=== PATIENT | female | born 2000 | race Two or more races ===

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

== ENCOUNTER 2021-03-07 13:17 | Emergency (ER) | payer OTHER ==
--- NOTE | 2021-03-07 15:21 | EDM.PDOC ---
ED HPI GENERAL MEDICAL PROBLEM - General Chief Complaint: ENT Problem Stated Complaint: SORE THROAT EAR PAIN Time Seen by Provider: 03/07/21 15:15 Source of Information: Reports: Patient History Limitations: Reports: No Limitations - History of Present Illness INITIAL COMMENTS - FREE TEXT/NARRATIVE: 20-year-old female no relevant past medical history presents for multiple compl aints. Patient is noted for the last several days fullness sensation to bilateral ears and difficulty hearing out of bilateral ears right greater than left. Patient also notes a dry, scratchy, painful throat which is worse with swallowing. She notes that her family member has sinusitis, her boyfriend has mononucleosis, and her other family member has strep throat. She denies any fevers. She does have a dry cough. She denies any shortness of breath. throat Pain Score (Numeric/FACES): 5 - Related Data Allergies Allergy/AdvReac Type Severity Reaction Status Date / Time amoxicillin Allergy Anaphylactic Verified 03/07/21 14:28 Shock fentanyl Allergy Rash Verified 03/07/21 14:28 morphine Allergy Rash Verified 03/07/21 14:28 Home Meds: Home Meds Pseudoephedrine HCl [Sudafed 12-Hour] 120 mg PO BID PRN #28 tablet.er 03/07/21 [Rx] Past Medical History - Past Health History Medical/Surgical History: Denies Medical/Surgical History HEENT History: Reports: None Cardiovascular History: Reports: None Respiratory History: Reports: None Gastrointestinal History: Reports: None Genitourinary History: Reports: UTI, Recurrent IMMUNOCHEMIST History: Reports: Ectopic Other IMMUNOCHEMIST History: states she had an IUD which was taken out last year and can no longer get due to complications Musculoskeletal History: Reports: None Neurological History: Reports: Migraines Psychiatric History: Reports: Anxiety Endocrine/Metabolic History: Reports: None Hematologic History: Reports: None Immunologic History: Reports: None Oncologic (Cancer) History: Reports: None Dermatologic History: Reports: None - Infectious Disease History Infectious Disease History: Reports: Chicken Pox - Past Surgical History Head Surgeries/Procedures: Reports: None HEENT Surgical History: Reports: Tonsillectomy Cardiovascular Surgical History: Reports: None Respiratory Surgical History: Reports: None GI Surgical History: Reports: None Female Surgical History: Reports: None Other Female Surgeries/Procedures: Tubal , miscarriage 2 Endocrine Surgical History: Reports: None Neurological Surgical History: Reports: None Musculoskeletal Surgical History: Reports: None Oncologic Surgical History: Reports: None Dermatological Surgical History: Reports: None Social & Family History - Family History Family Medical History: No Pertinent Family History - Caffeine Use Caffeine Use: Reports: None - Recreational Drug Use Recreational Drug Use: No ED ROS GENERAL - Review of Systems Review Of Systems: Comprehensive ROS is negative, except as noted in HPI. ED EXAM, GENERAL - Physical Exam Exam: See Below Exam Limited By: No Limitations General Appearance: Alert, WD/WN, No Apparent Distress Ears: Normal External Exam, Normal Canal, Hearing Grossly Normal, Normal TMs Throat/Mouth: Normal Inspection, Normal Oropharynx, Normal Voice, No Airway Compromise Head: Atraumatic, Normocephalic Neck: Normal Inspection Respiratory/Chest: No Respiratory Distress, Lungs Clear, Normal Breath Sounds, No Accessory Muscle Use Cardiovascular: Normal Peripheral Pulses, Regular Rate, Rhythm Extremities: Normal Inspection Neurological: Alert Psychiatric: Normal Affect, Normal Mood Skin Exam: Warm, Dry, Intact, Normal Color Course - Vital Signs Last Recorded V/S: Last Vital Signs Temp 98.7 F 03/07/21 14:28 Pulse 66 03/07/21 14:28 Resp 17 03/07/21 14:28 BP 136/96 H 03/07/21 14:28 Pulse Ox 95 03/07/21 14:28 - Orders/Labs/Meds Labs: Laboratory Tests 03/07/21 03/07/21 Range/Units 15:19 16:33 Monoscreen NEGATIVE (NEG) Group A Strep (PCR) NOT DETECTED (NOT DETECT) - Re-Assessments/Exams Free Text/Narrative Re-Assessment/Exam: 03/07/21 15:21 Patient declines Covid testing and she was tested yesterday and it was negative. Will get a strep throat test. Will get mono test. Will follow up results and disposition accordingly. 03/07/21 17:03 Strep and mono testing are negative. Will discharge patient home with PMD follow-up. Will give sudafed for decongestant 03/07/21 17:03 Departure - Departure Time of Disposition: 17:03 Disposition: Home, Self-Care 01 Condition: Good Clinical Impression: Sinus congestion - Discharge Information Prescriptions: Pseudoephedrine HCl [Sudafed 12-Hour] 120 mg PO BID PRN #28 tablet.er PRN Reason: Congestion Instructions: Pseudoephedrine tablets Referrals: PCP,None [Primary Care Provider] - Forms: ED Department Discharge Additional Instructions: The following information is given to patients seen in the emergency department who are being discharged to home. This information is to outline your options for follow-up care. We provide all patients seen in our emergency department with a follow-up referral. The need for follow-up, as well as the timing and circumstances, are variable depending upon the specifics of your emergency department visit. If you don't have a primary care physician on staff, we will provide you with a referral. We always advise you to contact your personal physician following an emergency department visit to inform them of the circumstance of the visit and for follow-up with them and/or the need for any referrals to a consulting specialist. The emergency department will also refer you to a specialist when appropriate. This referral assures that you have the opportunity for follow-up care with a specialist. All of these measure are taken in an effort to provide you with optimal care, which includes your follow-up. Under all circumstances we always encourage you to contact your private physician who remains a resource for coordinating your care. When calling for follow-up care, please make the office aware that this follow-up is from your recent emergency room visit. If for any reason you are refused follow-up, please contact the [facility] Emergency Department at and asked to speak to the emergency department charge nurse. Please follow up with your primary care physician. If you do not have a primary care physician, see below: [facility] [address] [place] [id number] [facility] [address] [place] [address] [facility] [address] [place] [id number] Sepsis Event Note (ED) - Evaluation Sepsis Screening Result: No Definite Risk - Focused Exam Vital Signs: Vital Signs Temp Pulse Resp BP Pulse Ox 03/07/21 14:28 98.7 F 66 17 136/96 H 95
[2021-03-07 17:13] VITALS: BP 130/84; PULSE 83
== END 2021-03-07 17:11 | disposition home or self-care (01) ==
LOC: MW.ED 13:17
DX: R09.81 Nasal congestion (principal); Z88.0 Allergy status to penicillin; Z88.5 Allergy status to narcotic agent; Z88.8 Allergy status to other drugs, medicaments and biological substances
CPT/HCPCS: 36415; 86308; 87651-QW; 99283

== ENCOUNTER 2021-04-16 10:03 | Emergency (ER) | payer OTHER ==
[2021-04-16] MEDS ORDERED: Ondansetron 4 MG/2 ML SDV IVPUSH ONE (10:56)
[2021-04-16] MEDS ORDERED: Sodium Chloride 0.9% 2.5 ML Syringe FLUSH PRN (10:56)
[2021-04-16] MEDS: Sodium Chloride 0.9% 10 ML Syringe FLUSH PRN ×2 (12:05→12:06)
[2021-04-16 12:53] LABS: BLOOD UREA NITROGEN,BUN 11 mg/dL (7.0-18.0); CARBON DIOXIDE,CO2 24.4 mmol/L (21.0-32.0); CHLORIDE,CL 100 mmol/L (98-107); GLUCOSE RANDOM 87 mg/dL (74-106); LIPASE 77 U/L (73-393); POTASSIUM,K 4.5 mmol/L (3.5-5.1); SODIUM,NA 138 mmol/L (136-145)
[2021-04-16] MEDS ORDERED: Iopamidol 755 MG/ML 500 ML Multipack Bottle IVPUSH STA (13:41)
--- NOTE | 2021-04-16 14:20 | CT ---
INDICATION: Leukocytosis. Right lower quadrant pain. TECHNIQUE: CT abdomen and pelvis acquired with 100 cc Omnipaque 350 IV contrast. COMPARISON: None. FINDINGS: Lower chest: Unremarkable. Liver: Unremarkable. Normal in size and attenuation. No suspicious masses. Gallbladder and bile ducts: Unremarkable. No stones or inflammation. No biliary dilatation. Pancreas: Unremarkable. No mass or inflammation. Spleen: Unremarkable. Normal in size. No masses. Adrenal glands: Unremarkable. No nodules. Kidneys: Unremarkable. No suspicious masses, stones, or hydronephrosis. GI tract: Unremarkable. Normal in caliber. No sign of mass or inflammation. Normal appendix. Vasculature: Unremarkable. Mesenteric arteries are patent. Lymph nodes: No lymphadenopathy. Omentum/Peritoneum/Abdominal Wall: Unremarkable. No sign of mass or infiltration. No free air or significant free fluid. Pelvis: Unremarkable. No adnexal masses or cysts. Bones: Unremarkable for age. IMPRESSION: Unremarkable CT of the abdomen and pelvis. No findings to explain right lower quadrant abdomen pain or leukocytosis. Specifically the GI tract and appendix are normal. Please note that all CT scans at this facility use dose modulation, iterative reconstruction, and/or weight-based dosing when appropriate to reduce radiation dose to as low as reasonably achievable. Dictated by Chip Roe MD @ 04/16/2021 2:18:38 PM (Electronically Signed)
--- NOTE | 2021-04-16 15:38 | US ---
INDICATION: Right-sided pain. COMPARISON: CT of the abdomen and pelvis 04/16/2021. Pelvic ultrasound 08/20/2020. TECHNIQUE: 2D valencia scale and color Doppler images were acquired of the pelvis using a transvaginal approach. FINDINGS: Sonographic images demonstrate a normal size and smooth outer contour of the uterus. The uterus is anteverted in position. The uterus measures 7.1 cm in length by 2.8 cm in AP diameter by 4.1 cm in transverse dimension. The myometrium has a normal uniform echotexture. The endometrial lining appears normal and measures 6 mm in composite thickness. The right ovary measures 3.2 x 2.3 x 2.4 cm in size and the left ovary measures 2.1 x 1.9 x 1.5 cm. The ovaries demonstrate normal arterial and venous blood flow on color Doppler analysis. Resolution of the previously seen right adnexal mass. Trace free fluid in the cul-de-sac is likely physiologic. IMPRESSION: 1. Resolution of the previously seen right adnexal mass. 2. Exam otherwise unremarkable. Dictated by Sandy Bhakta MD @ 04/16/2021 3:36:19 PM (Electronically Signed)
--- NOTE | 2021-04-16 15:41 | EDM.PDOC ---
ED HPI GENERAL MEDICAL PROBLEM - General Chief Complaint: Gastrointestinal Problem Stated Complaint: ABDOMINAL PAIN Time Seen by Provider: 04/16/21 10:06 Source of Information: Reports: Patient History Limitations: Reports: No Limitations - History of Present Illness INITIAL COMMENTS - FREE TEXT/NARRATIVE: HISTORY AND PHYSICAL: History of present illness: Patient is a 20-year-old female who presents emergency room today with lower abdominal discomfort since yesterday. Patient states that she also has had intermittent vomiting since the onset of her symptoms. Patient states that she does have a history of prior ectopic on the right side. Patient states that she also has a history of ovarian cyst ruptures and is unsure if her pain is similar to that today or not. Patient states that she was just tested for STDs 1 week ago as her boyfriend had been unfaithful to her and states that all of her testing was negative including gonorrhea and chlamydia. Patient denies any pain with intercourse. Patient denies any other abdominal surgeries. Patient states that she does not believe to be as she just had a negative test 1 week ago when she had her STD testing. Patient denies fever, chills, chest pain, shortness of breath, or cough. Denies headache, neck stiff ness, change in vision, syncope, or near syncope. Denies diarrhea, constipation, or dysuria. Has not noted any blood in urine or stool. Patient has been eating and drinking appropriately. Review of systems: As per history of present illness and below otherwise all systems reviewed and negative. Past medical history: As per history of present illness and as reviewed below otherwise noncontributory. Surgical history: As per history of present illness and as reviewed below otherwise noncontributory. Social history: See social history for further information Family history: As per history of present illness and as reviewed below otherwise noncontributory. Physical exam: General: Patient is alert, oriented, and in no acute distress. Patient sitting comfortably on exam table. Vitals stable and reviewed by me. HEENT: Atraumatic, normocephalic, pupils equal and reactive bilaterally, negative for conjunctival pallor or scleral icterus, neck supple, nontender, trachea midline. No drooling or trismus noted. No meningeal signs. No hot potato voice noted. Lungs: Clear to auscultation, breath sounds equal bilaterally, chest nontender. Heart: S1S2, regular rate and rhythm without overt murmur Abdomen: She has some mild to moderate right and left lower abdominal tenderness without guarding. Negative rebound, negative Lorenzana. Otherwise, soft, nondistended. Negative for masses or hepatosplenomegaly. Negative for costovertebral tenderness. Pelvis: Stable nontender. Genitourinary: Reflesher at bedside Liz Mclean RN. External genitalia grossly unremarkable. Negative cervical motion tenderness. Cervix is nontender and mobile. Uterus non tender. Rectal: Deferred. Skin: Intact, warm, dry. No lesions or rashes noted. Extremities: Atraumatic, negative for cords or calf pain. Neurovascular unremarkable. Neuro: Awake, alert, oriented. Cranial nerves II through XII unremarkable. Cerebellum unremarkable. Motor and sensory unremarkable throughout. Exam nonfocal. Notes: Patient is a 20-year-old female, with a history of prior ectopic , presents emergency room today with concern of lower abdominal discomfort. Patient states that she also had a cyst on her ovary and thought her discomfort was similar to this. Upon arrival to the ED, patient is vitally stable and well-appearing on exam. Patient does have some mild to moderate lower abdominal tenderness both left and right equal without guarding and negative rebound. Patient does not have any cervical motion tenderness or adnexal mass noted on exam. Will obtain basic lab work, hCG and imaging. CBC does show a mild leukocytosis at 13.59, at this time is nonspecific but not patient has been vomiting. CMP unremarkable. hCG is negative. Lipase within normal limits. UA does show positive nitrite, 2-5 white blood cells with 3+ bacteria. Possible concerning for early urinary tract infection TVUS shows resolution of a previously seen right adnexal mass. Exam otherwise unremarkable. Abdominal pelvic CT w cont is unremarkable CT of the abdomen and pelvis. No findings to explain lower abdominal pain or leukocytosis. Specifically the GI tract and appendix are normal. Patient does not have any additional episodes of vomiting today in the ED and is able to drink water without vomiting. On reevaluation of patient, she has improvement of her symptoms today in the emergency room. Given that patient does have an early urinary tract infection, mild elevation of white blood cell count at 13.59, will start patient on Bactrim at this time. Strict return precautions thoroughly discussed with patient. Discussed importance for follow-up with a primary care provider and women's health care provider. Voices understanding and is agreeable to plan of care. Denies any further questions or concerns at this time. Diagnostics: CBC, CMP, hCG, lipase, urinalysis, transvaginal ultrasound, abdominal pelvic CT scan with contrast Therapeutics: Zofran Prescription: Bactrim DS Impression: Lower abdominal pain, unspecified Urinary tract infection Plan: 1. Take medication as prescribed. You can alternate ibuprofen and Tylenol as directed for pain and discomfort. 2. Follow-up with a primary care provider/women's health care provider as discussed. Return to the ED as needed and as discussed. Definitive disposition and diagnosis as appropriate pending reevaluation and review of above. Right Abdomen Pain Score (Numeric/FACES): 6 - Related Data Allergies Allergy/AdvReac Type Severity Reaction Status Date / Time amoxicillin Allergy Anaphylactic Verified 04/16/21 10:43 Shock fentanyl Allergy Rash Verified 04/16/21 10:43 Home Meds: Home Meds Sulfamethoxazole/Trimethoprim [Bactrim Ds Tablet] 1 each PO BID 5 Days #10 tablet 04/16/21 [Rx] Past Medical History - Past Health History Medical/Surgical History: Denies Medical/Surgical History HEENT History: Reports: None Cardiovascular History: Reports: None Respiratory History: Reports: None Gastrointestinal History: Reports: None Genitourinary History: Reports: UTI, Recurrent 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 Other SURFACE WATER MANAGER History: states she had an IUD which was taken out last year and can no longer get due to complications Musculoskeletal History: Reports: None Neurological History: Reports: Migraines Psychiatric History: Reports: Anxiety Endocrine/Metabolic History: Reports: None Hematologic History: Reports: None Immunologic History: Reports: None Oncologic (Cancer) History: Reports: None Dermatologic History: Reports: None - Infectious Disease History Infectious Disease History: Reports: Chicken Pox - Past Surgical History Head Surgeries/Procedures: Reports: None HEENT Surgical History: Reports: Tonsillectomy Cardiovascular Surgical History: Reports: None Respiratory Surgical History: Reports: None GI Surgical History: Reports: None Female Surgical History: Reports: None Other Female Surgeries/Procedures: Tubal , miscarriage 2 Endocrine Surgical History: Reports: None Neurological Surgical History: Reports: None Musculoskeletal Surgical History: Reports: None Oncologic Surgical History: Reports: None Dermatological Surgical History: Reports: None Social & Family History - Family History Family Medical History: No Pertinent Family History Cardiac: Reports: [place] Neurological: Reports: CVA - Tobacco Use Tobacco Use Status *Q: Never Tobacco User - Caffeine Use Caffeine Use: Reports: None - Recreational Drug Use Recreational Drug Use: No ED ROS GENERAL - Review of Systems Review Of Systems: Comprehensive ROS is negative, except as noted in HPI. ED EXAM, GENERAL - Physical Exam Exam: See Below (see dictation) Course - Vital Signs Last Recorded V/S: Last Vital Signs Temp 97.1 F 04/16/21 10:39 Pulse 85 04/16/21 14:41 Resp 18 04/16/21 14:41 BP 128/92 H 04/16/21 14:41 Pulse Ox 96 04/16/21 14:41 - Orders/Labs/Meds Orders: Active Orders 24 hr Category Date Time Status CULTURE URINE [MREF] Stat Lab 04/16/21 12:40 Received Sodium Chloride 0.9% [Saline Flush] Med 04/16/21 10:56 Active 10 ml FLUSH ASDIRECTED PRN Sodium Chloride 0.9% [Saline Flush] Med 04/16/21 10:56 Active 2.5 ml FLUSH ASDIRECTED PRN Saline Lock Insert [OM.PC] Stat Oth 04/16/21 10:56 Ordered Medication Orders Sodium Chloride (Sodium Chloride 0.9% 10 Ml Syringe) 10 ml FLUSH ASDIRECTED PRN PRN Reason: Keep Vein Open Last Admin: 04/16/21 12:06 Dose: 10 ml Documented by: Admin: 04/16/21 12:05 Dose: 10 ml Documented by: GENARO Sodium Chloride (Sodium Chloride 0.9% 2.5 Ml Syringe) 2.5 ml FLUSH ASDIRECTED PRN PRN Reason: Keep Vein Open Last Admin: 04/16/21 14:01 Dose: 2.5 ml Documented by: GENARO Labs: Laboratory Tests 04/16/21 04/16/21 04/16/21 Range/Units 12:00 12:00 12:00 WBC 13.54 H (4.0-11.0) K/uL RBC 4.78 (4.30-5.90) M/uL Hgb 14.2 (12.0-16.0) g/dL Hct 43.3 (36.0-46.0) % MCV 90.6 (80.0-98.0) fL MCH 29.7 (27.0-32.0) pg MCHC 32.8 (31.0-37.0) g/dL RDW Std Deviation 42.1 (28.0-62.0) fl RDW Coeff of Ginny 13 (11.0-15.0) % Plt Count 380 (150-400) K/uL MPV 10.00 (7.40-12.00) fL Neut % (Auto) 83.3 H (48.0-80.0) % Lymph % (Auto) 8.3 L (16.0-40.0) % Alexander % (Auto) 7.5 (0.0-15.0) % Eos % (Auto) 0.8 (0.0-7.0) % Baso % (Auto) 0.1 (0.0-1.5) % Neut # (Auto) 11.3 H (1.4-5.7) K/uL Lymph # (Auto) 1.1 (0.6-2.4) K/uL Alexander # (Auto) 1.0 H (0.0-0.8) K/uL Eos # (Auto) 0.1 (0.0-0.7) K/uL Baso # (Auto) 0.0 (0.0-0.1) K/uL Sodium 138 (136-145) mmol/L Potassium 4.5 (3.5-5.1) mmol/L Chloride 100 (98-107) mmol/L Carbon Dioxide 24.4 (21.0-32.0) mmol/L BUN 11 (7.0-18.0) mg/dL Creatinine 0.5 L (0.6-1.0) mg/dL Est Cr Clr Drug Dosing 143.13 mL/min Estimated GFR (MDRD) > 60.0 ml/min Glucose 87 (74-106) mg/dL Calcium 8.9 (8.5-10.1) mg/dL Total Bilirubin 0.4 (0.2-1.0) mg/dL AST 22 (15-37) IU/L ALT 22 (14-63) IU/L Alkaline Phosphatase 84 (46-116) U/L Total Protein 8.2 (6.4-8.2) g/dL Albumin 4.0 (3.4-5.0) g/dL Globulin 4.2 H (2.6-4.0) g/dL Albumin/Globulin Ratio 1.0 (0.9-1.6) Lipase 77 (73-393) U/L HCG, Qual NEGATIVE (NEG) Urine Color Urine Appearance Urine pH (5.0-8.0) Ur Specific Robbins (1.001-1.035) Urine Protein (NEGATIVE) mg/dL Urine Glucose (UA) (NEGATIVE) mg/dL Urine Ketones (NEGATIVE) mg/dL Urine Occult Blood (NEGATIVE) Urine Nitrite (NEGATIVE) Urine Bilirubin (NEGATIVE) Urine Urobilinogen (<2.0) EU/dL Ur Leukocyte Esterase (NEGATIVE) Urine RBC (0-2/HPF) Urine WBC (0-5/HPF) Ur Epithelial Cells (NONE-FEW) Urine Bacteria (NEGATIVE) 04/16/21 Range/Units 12:40 WBC (4.0-11.0) K/uL RBC (4.30-5.90) M/uL Hgb (12.0-16.0) g/dL Hct (36.0-46.0) % MCV (80.0-98.0) fL MCH (27.0-32.0) pg MCHC (31.0-37.0) g/dL RDW Std Deviation (28.0-62.0) fl RDW Coeff of Ginny (11.0-15.0) % Plt Count (150-400) K/uL MPV (7.40-12.00) fL Neut % (Auto) (48.0-80.0) % Lymph % (Auto) (16.0-40.0) % Alexander % (Auto) (0.0-15.0) % Eos % (Auto) (0.0-7.0) % Baso % (Auto) (0.0-1.5) % Neut # (Auto) (1.4-5.7) K/uL Lymph # (Auto) (0.6-2.4) K/uL Alexander # (Auto) (0.0-0.8) K/uL Eos # (Auto) (0.0-0.7) K/uL Baso # (Auto) (0.0-0.1) K/uL Sodium (136-145) mmol/L Potassium (3.5-5.1) mmol/L Chloride (98-107) mmol/L Carbon Dioxide (21.0-32.0) mmol/L BUN (7.0-18.0) mg/dL Creatinine (0.6-1.0) mg/dL Est Cr Clr Drug Dosing mL/min Estimated GFR (MDRD) ml/min Glucose (74-106) mg/dL Calcium (8.5-10.1) mg/dL Total Bilirubin (0.2-1.0) mg/dL AST (15-37) IU/L ALT (14-63) IU/L Alkaline Phosphatase (46-116) U/L Total Protein (6.4-8.2) g/dL Albumin (3.4-5.0) g/dL Globulin (2.6-4.0) g/dL Albumin/Globulin Ratio (0.9-1.6) Lipase (73-393) U/L HCG, Qual (NEG) Urine Color YELLOW Urine Appearance SLT CLOUDY Urine pH 8.0 (5.0-8.0) Ur Specific Robbins 1.015 (1.001-1.035) Urine Protein TRACE H (NEGATIVE) mg/dL Urine Glucose (UA) NEGATIVE (NEGATIVE) mg/dL Urine Ketones NEGATIVE (NEGATIVE) mg/dL Urine Occult Blood NEGATIVE (NEGATIVE) Urine Nitrite POSITIVE H (NEGATIVE) Urine Bilirubin NEGATIVE (NEGATIVE) Urine Urobilinogen 0.2 (<2.0) EU/dL Ur Leukocyte Esterase NEGATIVE (NEGATIVE) Urine RBC 0-2 (0-2/HPF) Urine WBC 2-5 (0-5/HPF) Ur Epithelial Cells FEW (NONE-FEW) Urine Bacteria 3+ H (NEGATIVE) Meds: Medications Generic Name Dose Route Start Last Admin Trade Name Freq PRN Reason Stop Dose Admin Sodium Chloride 10 ml 04/16/21 10:56 04/16/21 12:06 Sodium Chloride 0.9% 10 Ml Syringe FLUSH 10 ml ASDIRECTED PRN Administration Keep Vein Open Sodium Chloride 2.5 ml 04/16/21 10:56 04/16/21 14:01 Sodium Chloride 0.9% 2.5 Ml Syringe FLUSH 2.5 ml ASDIRECTED PRN Administration Keep Vein Open Discontinued Medications Generic Name Dose Route Start Last Admin Trade Name Freq PRN Reason Stop Dose Admin Iopamidol 100 ml 04/16/21 13:41 04/16/21 13:43 Iopamidol 755 Mg/Ml 500 Ml Multipack Bottle IVPUSH 04/16/21 13:42 100 ml ONETIME STA Administration Ondansetron HCl 4 mg 04/16/21 10:56 04/16/21 12:02 Ondansetron 4 Mg/2 Ml Sdv IVPUSH 04/16/21 10:57 4 mg ONETIME ONE Administration Departure - Departure Time of Disposition: 15:41 Disposition: Home, Self-Care 01 Clinical Impression: Lower abdominal pain Urinary tract infection Qualifiers: Urinary tract infection type: acute cystitis Hematuria presence: without hematuria Qualified Code(s): N30.00 - Acute cystitis without hematuria - Discharge Information Prescriptions: Sulfamethoxazole/Trimethoprim [Bactrim Ds Tablet] 1 each PO BID 5 Days #10 tablet Referrals: Myra Pizarro MD [Primary Care Provider] - Forms: ED Department Discharge Additional Instructions: The following information is given to patients seen in the emergency department who are being discharged to home. This information is to outline your options for follow-up care. We provide all patients seen in our emergency department with a follow-up referral. The need for follow-up, as well as the timing and circumstances, are variable depending upon the specifics of your emergency department visit. If you don't have a primary care physician on staff, we will provide you with a referral. We always advise you to contact your personal physician following an emergency department visit to inform them of the circumstance of the visit and for follow-up with them and/or the need for any referrals to a consulting specialist. The emergency department will also refer you to a specialist when appropriate. This referral assures that you have the opportunity for follow-up care with a specialist. All of these measure are taken in an effort to provide you with optimal care, which includes your follow-up. Under all circumstances we always encourage you to contact your private physician who remains a resource for coordinating your care. When calling for follow-up care, please make the office aware that this follow-up is from your recent emergency room visit. If for any reason you are refused follow-up, please contact the [facility] Emergency Department at and asked to speak to the emergency department charge nurse. [facility] [address] [place] [address] [facility] [address] [place] [address] 1. Take medication as prescribed. You can alternate ibuprofen and Tylenol as directed for pain and discomfort. 2. Follow-up with a primary care provider/women's health care provider as disc ussed. Return to the ED as needed and as discussed. Sepsis Event Note (ED) - Evaluation Sepsis Screening Result: No Definite Risk - Focused Exam Vital Signs: Vital Signs Temp Pulse Resp BP Pulse Ox 04/16/21 14:41 85 18 128/92 H 96 04/16/21 10:39 97.1 F 90 18 133/79 96 - My Orders Last 24 Hours: My Active Orders 04/16/21 10:56 Sodium Chloride 0.9% [Saline Flush] 10 ml FLUSH ASDIRECTED PRN Sodium Chloride 0.9% [Saline Flush] 2.5 ml FLUSH ASDIRECTED PRN Saline Lock Insert [OM.PC] Stat 04/16/21 12:40 CULTURE URINE [MREF] Stat - Assessment/Plan Last 24 Hours: My Active Orders 04/16/21 10:56 Sodium Chloride 0.9% [Saline Flush] 10 ml FLUSH ASDIRECTED PRN Sodium Chloride 0.9% [Saline Flush] 2.5 ml FLUSH ASDIRECTED PRN Saline Lock Insert [OM.PC] Stat 04/16/21 12:40 CULTURE URINE [MREF] Stat
[2021-04-16 15:55] VITALS: BP 119/95; PULSE 91
== END 2021-04-16 16:03 | disposition home or self-care (01) ==
LOC: MW.ED 10:03
DX: N30.00 Acute cystitis without hematuria (principal); Z88.0 Allergy status to penicillin; Z88.8 Allergy status to other drugs, medicaments and biological substances
CPT/HCPCS: 36415; 74177; 76830; 80053; 81001; 83690; 84703; 85025; 87086; 96374; 99284; J2405; Q9967

== ENCOUNTER 2021-07-08 22:08 | Emergency (ER) | payer OTHER, MEDICAID ==
[2021-07-08 23:11] LABS: CORONAVIRUS COVID-19 NAA POSITIVE (NEGATIVE); INFLUENZA A NAA NEGATIVE (NEGATIVE); INFLUENZA B NAA NEGATIVE (NEGATIVE)
[2021-07-08] MEDS ORDERED: Ondansetron 4 MG Tab.DIS PO ONE (23:41)
--- NOTE | 2021-07-08 23:50 | EDM.PDOC ---
ED HPI GENERAL MEDICAL PROBLEM - General Chief Complaint: General Stated Complaint: BODY ACHES, HEADACHE Time Seen by Provider: 07/08/21 22:42 - History of Present Illness INITIAL COMMENTS - FREE TEXT/NARRATIVE: HISTORY AND PHYSICAL: History of present illness: This is a 20-year-old female who presents ER today secondary to cough, congestion, body aches, tactile fevers, muscle aches all throughout x1 to 2 days. Patient reports she is been taking [id number] medications without any relief in her symptoms. Patient reports she has not had her Covid or influenza vaccinations. Patient denies any diarrhea but has had nausea and vomiting. Patient reports nonproductive cough. Patient denies any loss of taste or smell. Patient has any abdominal pain or chest pain. Patient has any calf tenderness or swelling. Review of systems: As per history of present illness and below otherwise all systems reviewed and negative. Past medical history: As per history of present illness and as reviewed below otherwise noncon tributory. Surgical history: As per history of present illness and as reviewed below otherwise noncontributory. Social history: No reported history of drug abuse. Family history: As per history of present illness and as reviewed below otherwise noncontributory. Physical exam: This patient was seen and evaluated during the 2019 SARS-CoV-2 novel coronavirus pandemic period. Community viral transmission is ongoing at time of this encounter and the emergency department is operating under pandemic response procedures. Constitutional: Patient is oriented to person, place, and time. Appears well- developed and well-nourished. No distress. HEENT: Moist mucous membranes Head: Normocephalic and atraumatic Eyes: Right eye exhibits no discharge. Left eye exhibits no discharge. No scleral icterus Neck: Normal range of motion. No tracheal deviation present. Cardiovascular: Normal rate and regular rhythm. Pulmonary: Effort normal, no respiratory distress. Lungs are clear without any wheezing rales or rhonchi. Abdominal: No distention Musculoskeletal: Normal range of motion Neurologic: Alert and oriented to person, place and time. Skin: [place], warm and dry. Psychiatric: Normal mood and affect. Behavior is normal. Judgment and thought content normal. Nursing note and vital signs have been reviewed Pulse ox 99% on room air Diagnostics: Covid test positive Influenza negative Therapeutics: [] Assessment and plan: 20-year-old female who presents ER today with signs and symptoms concerning for coronavirus infection. Patient's coronavirus test here in the ED is positive. Patient's pulse ox is 98% to 99% on room air and patient appears to be in no acute respiratory distress. I have discussed with the patient her results and the need for isolation and to notify the [facility] department. Patient was given a prescription for ibuprofen and Zofran help with her symptoms. At this time, the patient does not meet criteria for inpatient level of care for coronavirus. Return precautions have been discussed with the patient including hypoxia/shortness of breath. Reassessment at the time of disposition demonstrates that the patient is in no acute distress. The patient has remained stable throughout the entire ED visit and is without objective evidence for acute process requiring urgent intervention or hospitalization. The patient is stable for discharge, counseling is provided as documented above, discussed symptomatic treatment and specific conditions for return. I have spoken with the patient/caregiver and discussed todays findings, in addition to providing specific details for the plan of care. Questions are answered and there is agreement with the plan. Definitive disposition and diagnosis as appropriate pending reevaluation and review of above. generalized Pain Score (Numeric/FACES): 8 - Related Data Allergies Allergy/AdvReac Type Severity Reaction Status Date / Time amoxicillin Allergy Anaphylactic Verified 07/08/21 22:36 Shock fentanyl Allergy Rash Verified 07/08/21 22:36 Home Meds: Home Meds Sulfamethoxazole/Trimethoprim [Bactrim Ds Tablet] 1 each PO BID 5 Days #10 tablet 04/16/21 [Rx] Ibuprofen 600 mg PO Q6HR PRN #30 tablet 07/08/21 [Rx] Ondansetron [Zofran ODT] 4 mg PO Q6H PRN #12 tab.dis 07/08/21 [Rx] Past Medical History - Past Health History Medical/Surgical History: Denies Medical/Surgical History HEENT History: Reports: None Cardiovascular History: Reports: None Respiratory History: Reports: None Gastrointestinal History: Reports: None Genitourinary History: Reports: UTI, Recurrent [employer] History: Reports: Ectopic Other [employer] History: states she had an IUD which was taken out last year and can no longer get due to complications Musculoskeletal History: Reports: None Neurological History: Reports: Migraines Psychiatric History: Reports: Anxiety Endocrine/Metabolic History: Reports: None Hematologic History: Reports: None Immunologic History: Reports: None Oncologic (Cancer) History: Reports: None Dermatologic History: Reports: None - Infectious Disease History Infectious Disease History: Reports: Chicken Pox - Past Surgical History Head Surgeries/Procedures: Reports: None HEENT Surgical History: Reports: Tonsillectomy Cardiovascular Surgical History: Reports: None Respiratory Surgical History: Reports: None GI Surgical History: Reports: None Female Surgical History: Reports: None Other Female Surgeries/Procedures: Tubal , miscarriage 2 Endocrine Surgical History: Reports: None Neurological Surgical History: Reports: None Musculoskeletal Surgical History: Reports: None Oncologic Surgical History: Reports: None Dermatological Surgical History: Reports: None Social & Family History - Family History Family Medical History: No Pertinent Family History Cardiac: Reports: ID Neurological: Reports: CVA - Caffeine Use Caffeine Use: Reports: Coffee, Energy Drinks, Soda, Tea ED ROS GENERAL - Review of Systems Review Of Systems: See Below ED EXAM, GENERAL - Physical Exam Exam: See Below Course - Vital Signs Last Recorded V/S: Last Vital Signs Temp 98 F 07/08/21 22:20 Pulse 96 07/08/21 22:20 Resp 18 07/08/21 22:20 BP 131/82 07/08/21 22:20 Pulse Ox 97 07/08/21 22:20 - Orders/Labs/Meds Labs: Laboratory Tests 07/08/21 07/08/21 Range/Units 22:25 22:56 Urine HCG, Qual NEGATIVE (NEGATIVE) Influenza Type A RNA NEGATIVE (NEGATIVE) Influenza Type B RNA NEGATIVE (NEGATIVE) SARS-CoV-2 RNA (HUMPHREY) POSITIVE H (NEGATIVE) Meds: Medications Discontinued Medications Generic Name Dose Route Start Last Admin Trade Name Ai PRN Reason Stop Dose Admin Ondansetron HCl 4 mg 07/08/21 23:41 Ondansetron 4 Mg Tab.Dis PO 07/08/21 23:42 ONETIME ONE Departure - Departure Time of Disposition: 23:49 Disposition: Home, Self-Care 01 Condition: Good Clinical Impression: COVID-19 virus infection - Discharge Information Instructions: 10 Things You Can Do to Manage Your COVID-19 Symptoms at Home - [facility] (01/18/2021), COVID-19 Quarantine vs. Isolation - [facility] (04/01/2021) Referrals: Myra Pizarro MD [Primary Care Provider] - Additional Instructions: You were seen and evaluated in ER today secondary to signs and symptoms concerning for coronavirus. Your coronavirus test did come back positive. At this time though your oxygen level is excellent and you will not meet criteria for inpatient level of care. You will be given a prescription for Zofran to assist you with your nausea and vomiting. 1. Your COVID-19 screening is positive. That means you do have the coronavirus and you are considered contagious. Your vital signs and oxygen saturation are well enough that you were able to monitor your symptoms at home. Continue to monitor for trouble breathing, new confusion or inability to arouse, bluish lips or face or any of the other symptoms we discussed -if this occurs please return to the emergency room. 2. Please self quarantine over the next 10 days. Inform any persons that you have been in contact with since you started becoming symptomatic that you have tested positive; they should be made aware and take the appropriate steps as needed. 3. You can take NyQuil during the evening to help get a restful night sleep. May alternate Tylenol and ibuprofen as needed for pain and fever management. 4. [facility] calling you and following up with you. The [place] COVID 19 Hotline phone number , They are open Thursday - Thursday 7am - 7pm. Follow up with your primary care provider for re-evaluation and re-testing after the 10 day quarantine and discuss when you should be seen. The following information is given to patients seen in the emergency department who are being discharged to home. This information is to outline your options for follow-up care. We provide all patients seen in our emergency department with a follow-up referral. The need for follow-up, as well as the timing and circumstances, are variable depending upon the specifics of your emergency department visit. If you don't have a primary care physician on staff, we will provide you with a referral. We always advise you to contact your personal physician following an emergency department visit to inform them of the circumstance of the visit and for follow-up with them and/or the need for any referrals to a consulting specialist. The emergency department will also refer you to a specialist when appropriate. This referral assures that you have the opportunity for follow-up care with a specialist. All of these measure are taken in an effort to provide you with optimal care, which includes your follow-up. Under all circumstances we always encourage you to contact your private physic juan alberto who remains a resource for coordinating your care. When calling for follow- up care, please make the office aware that this follow-up is from your recent emergency room visit. If for any reason you are refused follow-up, please contact the [facility] Emergency Department at and asked to speak to the emergency department charge nurse. [facility] [address] [place] [id number] [facility] [address] [place] [id number] Sepsis Event Note (ED) - Evaluation Sepsis Screening Result: No Definite Risk - Focused Exam Vital Signs: Vital Signs Temp Pulse Resp BP Pulse Ox 07/08/21 22:20 98 F 96 18 131/82 97
[2021-07-08 23:52] VITALS: BP 167/74; PULSE 98
== END 2021-07-08 23:53 | disposition home or self-care (01) ==
LOC: MW.ED 22:08
DX: U07.1 COVID-19 (principal); Z88.0 Allergy status to penicillin; Z88.8 Allergy status to other drugs, medicaments and biological substances
CPT/HCPCS: 0240U; 81025; 99283; A9270

== ENCOUNTER 2021-08-04 17:53 | Emergency (ER) | payer MEDICAID ==
[2021-08-04 18:15] VITALS: BP 138/85; PULSE 83
[2021-08-04 21:15] LABS: BLOOD UREA NITROGEN,BUN 10 mg/dL (7.0-18.0); CARBON DIOXIDE,CO2 28.5 mmol/L (21.0-32.0); CHLORIDE,CL 100 mmol/L (98-107); GLUCOSE RANDOM 90 mg/dL (74-106); SODIUM,NA 139 mmol/L (136-145)
== END 2021-08-04 21:34 | disposition home or self-care (01) ==
LOC: MW.ED 17:53
DX: O20.0 Threatened abortion (principal); Z88.0 Allergy status to penicillin; Z88.6 Allergy status to analgesic agent; Z3A.01 Less than 8 weeks gestation of pregnancy
CPT/HCPCS: 36415; 76801; 76801-26; 80053; 84702; 85025; 86900; 86901; 99284-25

== ENCOUNTER 2021-11-13 10:28 | Emergency (ER) | payer MEDICAID ==
[2021-11-13] MEDS ORDERED: Ondansetron 4 MG/2 ML SDV IVPUSH ONE (10:51)
[2021-11-13] MEDS ORDERED: Sodium Chloride 0.9% 1,000 ML IV ONE (10:51)
[2021-11-13 11:00] VITALS: BP 137/77
[2021-11-13 12:17] LABS: BLOOD UREA NITROGEN,BUN 9 mg/dL (7.0-18.0); CARBON DIOXIDE,CO2 26.8 mmol/L (21.0-32.0); CHLORIDE,CL 106 mmol/L (98-107); GLUCOSE RANDOM 100 mg/dL (74-106); LIPASE 51 U/L (73-393); POTASSIUM,K 3.9 mmol/L (3.5-5.1); SODIUM,NA 141 mmol/L (136-145)
[2021-11-13 12:49] VITALS: PULSE 68
== END 2021-11-13 12:49 | disposition home or self-care (01) ==
LOC: MW.ED 10:28
DX: R11.10 Vomiting, unspecified (principal); Z88.0 Allergy status to penicillin; Z88.6 Allergy status to analgesic agent; Z91.040 Latex allergy status
CPT/HCPCS: 36415; 80053; 81003; 83690; 84703; 85025; 96361; 96374; 99284; J2405; J7030

== ENCOUNTER 2021-11-18 07:15 | Emergency (ER) | payer MEDICAID ==
[2021-11-18] MEDS ORDERED: Ketorolac 60 MG/2 ML SDV IM ONE (08:46)
[2021-11-18] MEDS ORDERED: Bacitracin Oint 1 GM U/D Packet TOP ONE (09:18)
[2021-11-18 11:16] VITALS: BP 128/82; PULSE 81
== END 2021-11-18 11:17 | disposition home or self-care (01) ==
LOC: MW.ED 07:15
DX: S80.212A Abrasion, left knee, initial encounter (principal); S60.511A Abrasion of right hand, initial encounter; S60.512A Abrasion of left hand, initial encounter; Z88.0 Allergy status to penicillin; Z88.6 Allergy status to analgesic agent; Z91.040 Latex allergy status; X58.XXXA Exposure to other specified factors, initial encounter
CPT/HCPCS: 73562; 96372; 99283; J1885

== ENCOUNTER 2021-11-27 00:39 | Emergency (ER) | payer MEDICAID ==
[2021-11-27] MEDS ORDERED: LORazepam 1 MG Tab PO STA (01:08)
[2021-11-27] MEDS ORDERED: HYDROmorphone 1 MG/ML Syringe IM ONE (01:08)
[2021-11-27] MEDS ORDERED: Ondansetron 4 MG Tab.DIS PO STA (01:09)
[2021-11-27] MEDS ORDERED: Lidocaine 1% 5 ML VIAL INJECT ONE (01:09)
[2021-11-27] MEDS ORDERED: Lidocaine/Epineph/Tetracaine 3 ML Syringe TOP ONE (03:01)
[2021-11-27 03:35] LABS: BLOOD UREA NITROGEN,BUN 9 mg/dL (7.0-18.0); CARBON DIOXIDE,CO2 25.6 mmol/L (21.0-32.0); CHLORIDE,CL 103 mmol/L (98-107); GLUCOSE RANDOM 109 mg/dL (74-106); POTASSIUM,K 3.6 mmol/L (3.5-5.1); SODIUM,NA 139 mmol/L (136-145)
[2021-11-27] MEDS ORDERED: Levofloxacin 500 MG Tab PO STA (03:39)
[2021-11-27 04:03] VITALS: BP 125/62; PULSE 87
== END 2021-11-27 04:03 | disposition home or self-care (01) ==
LOC: MW.ED 00:39
DX: N76.2 Acute vulvitis (principal)
CPT/HCPCS: 36415; 56405; 80053; 84703; 85025; 96372; 99283; A9270-GY; J1170

== ENCOUNTER 2021-12-08 13:38 | Emergency (ER) | payer SELFPAY ==
[2021-12-08] MEDS ORDERED: Sodium Chloride 0.9% 2.5 ML Syringe FLUSH PRN (14:05)
[2021-12-08] MEDS ORDERED: Sodium Chloride 0.9% 10 ML Syringe FLUSH PRN (14:05)
[2021-12-08] MEDS ORDERED: Sodium Chloride 0.9% 1,000 ML IV ONE (14:07)
[2021-12-08] MEDS ORDERED: Ondansetron 4 MG/2 ML SDV IVPUSH ONE (14:07)
[2021-12-08] MEDS ORDERED: Ketorolac 30 MG/ML SDV IVPUSH ONE (14:07)
[2021-12-08 15:04] LABS: BLOOD UREA NITROGEN,BUN 9 mg/dL (7.0-18.0); CARBON DIOXIDE,CO2 22.7 mmol/L (21.0-32.0); CHLORIDE,CL 102 mmol/L (98-107); GLUCOSE RANDOM 101 mg/dL (74-106); LIPASE 58 U/L (73-393); POTASSIUM,K 3.4 mmol/L (3.5-5.1); SODIUM,NA 137 mmol/L (136-145)
[2021-12-08] MEDS ORDERED: HYDROmorphone 1 MG/ML Syringe IVPUSH ONE (15:10)
[2021-12-08] MEDS ORDERED: Iopamidol 755 MG/ML 500 ML Multipack Bottle IVPUSH ONE (16:57)
[2021-12-08 17:01] LABS: C. TRACHOMATIS BY PCR NOT DETECTED; N. GONORRHOEAE BY PCR NOT DETECTED
[2021-12-08 18:16] VITALS: BP 118/65; PULSE 72
== END 2021-12-08 18:13 | disposition home or self-care (01) ==
LOC: MW.ED 13:38
DX: O20.0 Threatened abortion (principal); O34.81 Maternal care for other abnormalities of pelvic organs, first trimester; N83.202 Unspecified ovarian cyst, left side; Z88.0 Allergy status to penicillin; Z91.040 Latex allergy status; Z88.8 Allergy status to other drugs, medicaments and biological substances; Z3A.01 Less than 8 weeks gestation of pregnancy
CPT/HCPCS: 36415; 74177; 76830; 80053; 83605; 83690; 84702; 84703; 85025; 87480; 87491; 87510; 87591; 87660; 96361; 96374; 96375; 99284; J1170; J1885; J2405; J3490; J7030; Q9967

== ENCOUNTER 2021-12-16 19:43 | Emergency (ER) | payer SELFPAY ==
[2021-12-16 20:48] LABS: BLOOD UREA NITROGEN,BUN 13 mg/dL (7.0-18.0); CARBON DIOXIDE,CO2 27.7 mmol/L (21.0-32.0); CHLORIDE,CL 102 mmol/L (98-107); GLUCOSE RANDOM 88 mg/dL (74-106); POTASSIUM,K 3.7 mmol/L (3.5-5.1); SODIUM,NA 137 mmol/L (136-145)
[2021-12-16 20:51] LABS: ESTIMATED GFR > 60.0 ml/min
[2021-12-16 22:06] VITALS: BP 127/75; PULSE 81
== END 2021-12-16 22:48 | disposition home or self-care (01) ==
LOC: MW.ED 19:43
DX: O03.9 Complete or unspecified spontaneous abortion without complication (principal); Z88.0 Allergy status to penicillin; Z88.6 Allergy status to analgesic agent; Z91.040 Latex allergy status
CPT/HCPCS: 36415; 76817; 76817-26; 80053; 81001; 81025; 84702; 85025; 86850; 86900; 86901; 99284-25

== ENCOUNTER 2023-03-01 05:59 | Emergency (ER) | payer MEDICAID, OTHER ==
[2023-03-01] MEDS ORDERED: Sodium Chloride 0.9% 1,000 ML IV ONE (06:09)
[2023-03-01] MEDS ORDERED: Sodium Chloride 0.9% 10 ML Syringe FLUSH PRN (06:09)
[2023-03-01] MEDS ORDERED: Metoclopramide 10 MG/2 ML SDV IVPUSH ONE (06:09)
[2023-03-01] MEDS ORDERED: diphenhydrAMINE 50 MG/ML SDV IVPUSH ONE (06:09)
[2023-03-01] MEDS ORDERED: Sodium Chloride 0.9% 2.5 ML Syringe FLUSH PRN (06:09)
[2023-03-01 06:21] LABS: BASOPHILS PERCENT AUTO 0.1 % (0.0-1.5); EOSINOPHILS ABSOLUTE AUTO 0.1 K/uL (0.0-0.7); EOSINOPHILS PERCENT AUTO 0.5 % (0.0-7.0); HEMATOCRIT 39.7 % (36.0-46.0); LYMPHOCYTES ABSOLUTE AUTO 0.6 K/uL (0.6-2.4); LYMPHOCYTES PERCENT AUTO 6.3 % (16.0-40.0); MEAN CORPUSCULAR HEMOGLOBIN 27.8 pg (27.0-32.0); MEAN CORPUSCULAR HGB CONC 32.7 g/dL (31.0-37.0); MEAN CORPUSCULAR VOLUME 84.8 fL (80.0-98.0); MONOCYTES PERCENT AUTO 10.7 % (0.0-15.0); NEUTROPHILS ABSOLUTE AUTO 7.8 K/uL (1.4-5.7); NEUTROPHILS PERCENT AUTO 82.4 % (48.0-80.0); NRBC ABSOLUTE 0 K/uL; PLATELET COUNT,PLT 346 K/uL (150-400); RED BLOOD CELL COUNT 4.68 M/uL (4.30-5.90); WHITE BLOOD CELL COUNT,WBC 9.52 K/uL (4.0-11.0)
[2023-03-01 06:43] LABS: ALBUMIN 4.1 g/dL (3.4-5.0); BILIRUBIN TOTAL 0.4 mg/dL (0.2-1.0); CALCIUM 9.3 mg/dL (8.5-10.1); CARBON DIOXIDE,CO2 27.3 mmol/L (21.0-32.0); CREATININE 0.8 mg/dL (0.6-1.0); EST CRCL DRUG DOSING (CG) 87.98 mL/min; POTASSIUM,K 3.8 mmol/L (3.5-5.1); PROTEIN TOTAL,TP 8.4 g/dL (6.4-8.2)
[2023-03-01 08:35] VITALS: BP 120/68; PULSE 87
== END 2023-03-01 08:40 | disposition home or self-care (01) ==
LOC: MW.ED 05:59
DX: O98.53 Other viral diseases complicating the puerperium (principal); U07.1 COVID-19; O20.0 Threatened abortion; Z88.0 Allergy status to penicillin; Z91.040 Latex allergy status; Z88.8 Allergy status to other drugs, medicaments and biological substances
CPT/HCPCS: 36415; 76801; 80053; 84702; 84703; 85025; 86900; 86901; 87635; 96361; 96374; 96375; 99284; J1200; J2765; J3490; J7030; U0002

== ENCOUNTER 2023-03-09 10:01 | Day surgery (SDC) | payer OTHER ==
[2023-03-09] MEDS ORDERED: Acetaminophen 325 MG Tab PO ONE (10:25)
[2023-03-09] MEDS ORDERED: Morphine 4 MG/ML Syringe IVPUSH ONE ×2 (10:26→11:04)
[2023-03-09 10:39] LABS: BASOPHILS PERCENT AUTO 0.3 % (0.0-1.5); EOSINOPHILS ABSOLUTE AUTO 0.1 K/uL (0.0-0.7); EOSINOPHILS PERCENT AUTO 1.3 % (0.0-7.0); HEMATOCRIT 40.5 % (36.0-46.0); HEMOGLOBIN 13.3 g/dL (12.0-16.0); LYMPHOCYTES ABSOLUTE AUTO 2.2 K/uL (0.6-2.4); LYMPHOCYTES PERCENT AUTO 23.5 % (16.0-40.0); MEAN CORPUSCULAR HEMOGLOBIN 27.8 pg (27.0-32.0); MEAN CORPUSCULAR HGB CONC 32.8 g/dL (31.0-37.0); MEAN CORPUSCULAR VOLUME 84.7 fL (80.0-98.0); MONOCYTES ABSOLUTE AUTO 0.7 K/uL (0.0-0.8); MONOCYTES PERCENT AUTO 7.5 % (0.0-15.0); NEUTROPHILS ABSOLUTE AUTO 6.3 K/uL (1.4-5.7); NEUTROPHILS PERCENT AUTO 67.4 % (48.0-80.0); NRBC ABSOLUTE 0 K/uL; PLATELET COUNT,PLT 425 K/uL (150-400); RED BLOOD CELL COUNT 4.78 M/uL (4.30-5.90); WHITE BLOOD CELL COUNT,WBC 9.33 K/uL (4.0-11.0)
[2023-03-09 11:00] LABS: A/G RATIO 0.9 (0.9-1.6); ALBUMIN 4.1 g/dL (3.4-5.0); BILIRUBIN TOTAL 0.5 mg/dL (0.2-1.0); CALCIUM 9.3 mg/dL (8.5-10.1); CARBON DIOXIDE,CO2 25.4 mmol/L (21.0-32.0); CREATININE 0.7 mg/dL (0.6-1.0); EST CRCL DRUG DOSING (CG) 100.55 mL/min; POTASSIUM,K 3.8 mmol/L (3.5-5.1); PROTEIN TOTAL,TP 8.5 g/dL (6.4-8.2)
[2023-03-09] MEDS ORDERED: Lactated Ringers 1,000 ML IV SCH (11:15)
[2023-03-09] MEDS ORDERED: Acetaminophen/oxyCODONE 325-5 MG Tab PO PRN (12:58)
[2023-03-09] MEDS ORDERED: Ondansetron 4 MG/2 ML SDV IVPUSH PRN ×2 (12:58→15:42)
[2023-03-09] MEDS ORDERED: Ketorolac 30 MG/ML SDV IM SCH (13:00)
[2023-03-09] MEDS ORDERED: Bupivacaine 0.25% 30 ML SDV ONE ×2 (13:27→13:29)
[2023-03-09] MEDS ORDERED: fentaNYL 100 MCG/2 ML SDV ONE (13:29)
[2023-03-09] MEDS ORDERED: Ketorolac 30 MG/ML SDV ONE (13:29)
[2023-03-09] MEDS ORDERED: Ropivacaine/PF 400 MG/200 ML PCA ONE (13:29)
[2023-03-09] MEDS ORDERED: Ondansetron 4 MG/2 ML SDV ONE (13:29)
[2023-03-09] MEDS ORDERED: Lidocaine 2% 5 ML SDV ONE (13:29)
[2023-03-09] MEDS ORDERED: Sugammadex Sodium 200 MG/2 ML VIAL ONE (13:29)
[2023-03-09] MEDS ORDERED: Ropivacaine 0.5% 5 MG/ML 30 ML SDV ONE (13:29)
[2023-03-09] MEDS ORDERED: Rocuronium Bromide 50 MG/5 ML Syringe ONE (13:29)
[2023-03-09] MEDS ORDERED: Propofol 200 MG/20 ML SDV ONE (13:29)
[2023-03-09] MEDS ORDERED: Dexamethasone 4 MG/ML 5 ML MDV ONE (13:29)
[2023-03-09] MEDS ORDERED: Vasopressin 20 Units/1 ML MDV ONE (13:32)
[2023-03-09] MEDS ORDERED: HYDROmorphone 2 MG/ML Syringe ONE (13:32)
[2023-03-09] MEDS ORDERED: Albuterol 0.083% 2.5 MG/3 ML Neb Soln NEB PRN (15:42)
[2023-03-09] MEDS ORDERED: droPERidol 5 MG/2 ML SDV IVPUSH PRN (15:42)
[2023-03-09] MEDS ORDERED: HYDROmorphone 1 MG/ML Syringe IVPUSH PRN (15:42)
[2023-03-09] MEDS ORDERED: fentaNYL 50 MCG/ML SDV IVPUSH PRN (15:42)
[2023-03-09] MEDS ORDERED: Morphine 2 MG/ML SYRINGE IVPUSH PRN (15:42)
[2023-03-09] MEDS ORDERED: Naloxone 0.4 MG/ML SDV IVPUSH PRN (15:42)
[2023-03-09] MEDS ORDERED: Metoclopramide 10 MG/2 ML SDV IVPUSH PRN (15:42)
[2023-03-09 20:25] VITALS: BP 137/78; PULSE 64
== END 2023-03-09 20:45 | disposition home or self-care (01) ==
LOC: MW.ED 10:01 → MW.SDS 10:01 → MW.MS 13:04 → MW.SDS 20:45
PROVIDERS: ATTEND Obstetrics & Gynecology
DX: O00.101 Right tubal pregnancy without intrauterine pregnancy (principal); O99.340 Other mental disorders complicating pregnancy, unspecified trimester; O46.90 Antepartum hemorrhage, unspecified, unspecified trimester; N39.0 Urinary tract infection, site not specified; G89.29 Other chronic pain; G43.909 Migraine, unspecified, not intractable, without status migrainosus; F41.9 Anxiety disorder, unspecified; F31.9 Bipolar disorder, unspecified; I50.9 Heart failure, unspecified; I11.0 Hypertensive heart disease with heart failure; I25.2 Old myocardial infarction; J44.9 Chronic obstructive pulmonary disease, unspecified; E11.9 Type 2 diabetes mellitus without complications; E03.9 Hypothyroidism, unspecified; F53.0 Postpartum depression; N83.8 Other noninflammatory disorders of ovary, fallopian tube and broad ligament; Z88.1 Allergy status to other antibiotic agents; Z91.040 Latex allergy status; Z88.8 Allergy status to other drugs, medicaments and biological substances; Z79.899 Other long term (current) drug therapy
CPT/HCPCS: 36415; 51701; 59151; 76817; 80053; 84702; 85025; 86900; 86901; 96372; 96374; 96376; 99285; A9270; J0131; J1100; J1170; J1885; J2270; J2704; J2795; J3490; J7120; 00840; J2405; J3010

== ENCOUNTER 2023-05-01 11:50 | Emergency (ER) | payer OTHER ==
[2023-05-01 12:22] LABS: APPEARANCE,URINE CLEAR; BILIRUBIN,URINE NEGATIVE (NEGATIVE); COLOR,URINE YELLOW; GLUCOSE,URINE NEGATIVE (NEGATIVE); KETONES,URINE NEGATIVE (NEGATIVE); LEUKOCYTE ESTERASE,URINE MODERATE (NEGATIVE); NITRITE,URINE NEGATIVE (NEGATIVE); OCCULT BLOOD,URINE TRACE-INTACT (NEGATIVE); PH,URINE 5.5 (5.0-8.0); PROTEIN,URINE TRACE mg/dL (NEGATIVE); UROBILINOGEN,URINE 0.2 EU/dL (<2.0)
[2023-05-01 12:38] LABS: WBC,URINE TO NUMEROUS TO COUNT (0-5/HPF)
[2023-05-01 12:39] LABS: BACTERIA,URINE MANY (NEGATIVE); EPITHELIAL CELLS,URINE MODERATE (NONE-FEW); YEAST,URINE FEW
[2023-05-01 13:22] LABS: CANDIDA DNA PROBE POSITIVE (NEGATIVE); GARDNERELLA DNA PROBE POSITIVE (NEGATIVE); TRICHOMONAS DNA PROBE NEGATIVE (NEGATIVE)
[2023-05-01 14:05] LABS: C. TRACHOMATIS BY PCR DETECTED; N. GONORRHOEAE BY PCR NOT DETECTED
[2023-05-01] MEDS ORDERED: Doxycycline 100 MG Cap PO ONE (14:26)
[2023-05-01 14:37] VITALS: BP 141/79; PULSE 71
== END 2023-05-01 14:37 | disposition home or self-care (01) ==
LOC: MW.ED 11:50
DX: N39.0 Urinary tract infection, site not specified (principal); A74.9 Chlamydial infection, unspecified; N76.0 Acute vaginitis; B37.9 Candidiasis, unspecified; Z88.1 Allergy status to other antibiotic agents; Z88.5 Allergy status to narcotic agent; Z88.8 Allergy status to other drugs, medicaments and biological substances
CPT/HCPCS: 81001; 81025; 87086; 87480; 87491; 87510; 87591; 87660; 99283; A9270

== ENCOUNTER 2023-07-03 00:08 | Observation (INO) | payer SELFPAY ==
[2023-07-03 00:38] LABS: BASOPHILS ABSOLUTE AUTO 0.04 K/uL (0.00-0.20); BASOPHILS PERCENT AUTO 0.6 % (0.0-1.0); EOSINOPHILS PERCENT AUTO 1.4 % (0.0-6.0); HEMOGLOBIN 11.8 g/dL (12.0-16.0); IMMATURE GRAN ABSOLUTE AUTO 0.05 K/uL (0.00-0.05); IMMATURE GRAN PERCENT AUTO 0.7 % (0.0-0.4); LYMPHOCYTES ABSOLUTE AUTO 0.97 K/uL (1.00-4.80); LYMPHOCYTES PERCENT AUTO 13.4 % (24.0-44.0); MEAN CORPUSCULAR HGB CONC 33.7 g/dL (32.0-36.0); MEAN PLATELET VOLUME 9.5 fL (9.4-12.3); MONOCYTES ABSOLUTE AUTO 0.95 K/uL (0.00-0.80); MONOCYTES PERCENT AUTO 13.1 % (0.0-8.0); NEUTROPHILS ABSOLUTE AUTO 5.12 K/uL (1.80-7.70); NEUTROPHILS PERCENT AUTO 70.8 % (41.0-71.0); PLATELET COUNT,PLT 310 K/uL (150-400); RED BLOOD CELL COUNT 4.07 M/uL (4.10-5.30); WHITE BLOOD CELL COUNT,WBC 7.23 K/uL (3.9-11.3)
[2023-07-03 01:24] LABS: A/G RATIO 1.1 (0.9-1.6); ALBUMIN 3.9 g/dL (3.4-5.0); BILIRUBIN TOTAL 0.3 mg/dL (0.2-1.0); CALCIUM 8.5 mg/dL (8.5-10.1); CARBON DIOXIDE,CO2 26.6 mmol/L (21.0-32.0); CREATININE 0.8 mg/dL (0.6-1.0); EST CRCL DRUG DOSING (CG) 87.98 mL/min; POTASSIUM,K 3.8 mmol/L (3.5-5.1); PROTEIN TOTAL,TP 7.5 g/dL (6.4-8.2)
[2023-07-03 01:55] LABS: GLUCOSE,URINE NEGATIVE (NEGATIVE); KETONES,URINE NEGATIVE (NEGATIVE); LEUKOCYTE ESTERASE,URINE TRACE (NEGATIVE); NITRITE,URINE NEGATIVE (NEGATIVE); OCCULT BLOOD,URINE LARGE (NEGATIVE); PH,URINE 5.5 (5.0-8.0); PROTEIN,URINE 100 mg/dL (NEGATIVE)
[2023-07-03 01:58] LABS: BILIRUBIN,URINE MODERATE (NEGATIVE)
[2023-07-03 01:59] LABS: APPEARANCE,URINE CLOUDY; COLOR,URINE RED
[2023-07-03 02:00] LABS: BACTERIA,URINE FEW (NEGATIVE); EPITHELIAL CELLS,URINE MODERATE (NONE-FEW); MUCUS,URINE FEW (NONE-MOD); RBC,URINE TOO NUMEROUS TO CT (0-2/HPF)
[2023-07-03] MEDS ORDERED: Ondansetron 4 MG/2 ML SDV IVPUSH ONE (02:08)
[2023-07-03] MEDS ORDERED: HYDROmorphone 2 MG/ML Syringe IVPUSH ONE (02:08)
[2023-07-03] MEDS ORDERED: Sodium Chloride 0.9% 1,000 ML IV ONE (03:53)
[2023-07-03] MEDS ORDERED: HYDROmorphone 1 MG/ML Syringe IVPUSH ONE (04:04)
[2023-07-03] MEDS ORDERED: Ondansetron 4 MG/2 ML SDV ONE (05:12)
[2023-07-03] MEDS ORDERED: Rocuronium Bromide 50 MG/5 ML Syringe ONE (05:12)
[2023-07-03] MEDS ORDERED: Metoclopramide 10 MG/2 ML SDV ONE (05:12)
[2023-07-03] MEDS ORDERED: propofoL 50 ML ONE ×2 (05:12→06:35)
[2023-07-03] MEDS ORDERED: Lidocaine 2% 5 ML SDV ONE (05:12)
[2023-07-03] MEDS ORDERED: Ropivacaine 0.5% 5 MG/ML 30 ML SDV ONE (05:13)
[2023-07-03] MEDS ORDERED: dexmedeTOMIDine HCl 200 MCG/2 ML SDV ONE (05:14)
[2023-07-03] MEDS ORDERED: Water For Injection, Sterile 20 ML ONE (05:14)
[2023-07-03] MEDS ORDERED: Morphine 2 MG/ML SYRINGE IVPUSH PRN (05:41)
[2023-07-03] MEDS ORDERED: fentaNYL 50 MCG/ML SDV IVPUSH PRN (05:41)
[2023-07-03] MEDS ORDERED: HYDROmorphone 1 MG/ML Syringe IVPUSH PRN (05:41)
[2023-07-03] MEDS ORDERED: Albuterol 0.083% 2.5 MG/3 ML Neb Soln NEB PRN (05:41)
[2023-07-03] MEDS ORDERED: Metoclopramide 10 MG/2 ML SDV IVPUSH PRN (05:41)
[2023-07-03] MEDS ORDERED: droPERidol 5 MG/2 ML SDV IVPUSH PRN (05:41)
[2023-07-03] MEDS ORDERED: Naloxone 0.4 MG/ML SDV IVPUSH PRN (05:41)
[2023-07-03] MEDS ORDERED: Ondansetron 4 MG/2 ML SDV IVPUSH PRN (05:41)
[2023-07-03] MEDS ORDERED: Morphine 10 MG/ML SDV ONE (05:42)
[2023-07-03] MEDS ORDERED: Bupivacaine 0.5% 30 ML SDV ONE (05:43)
[2023-07-03] MEDS ORDERED: Bupivacaine 0.5%/EPINEPHrine 1:200,000 30 ML SDV ONE (06:13)
[2023-07-03] MEDS ORDERED: Dexamethasone 4 MG/ML 5 ML MDV ONE (06:21)
[2023-07-03] MEDS ORDERED: Sugammadex Sodium 200 MG/2 ML VIAL ONE (06:22)
[2023-07-03] MEDS ORDERED: Ketorolac 30 MG/ML SDV ONE (07:05)
[2023-07-03] MEDS ORDERED: Acetaminophen/HYDROcodone 325-5 MG Tab PO PRN (08:09)
[2023-07-03] MEDS ORDERED: Sodium Chloride 0.9% 500 ML IV SCH (16:00)
[2023-07-03] MEDS ORDERED: Sodium Chloride 0.9% 500 ML IV ONE (16:00)
[2023-07-03 21:19] LABS: HEMATOCRIT 34.5 % (37.0-47.0); HEMOGLOBIN 11.7 g/dL (12.0-16.0); MEAN CORPUSCULAR HEMOGLOBIN 29.3 pg (28.0-32.0); MEAN CORPUSCULAR HGB CONC 33.9 g/dL (32.0-36.0); MEAN CORPUSCULAR VOLUME 86.5 fL (83.0-99.0); PLATELET COUNT,PLT 316 K/uL (150-400); RED BLOOD CELL COUNT 3.99 M/uL (4.10-5.30)
[2023-07-03 22:35] LABS: BAND ABSOLUTE MAN 0.08; BAND PERCENT MAN 1 %; LYMPHOCYTES ABSOLUTE MAN 0.42 K/uL (1.00-4.80); LYMPHOCYTES PERCENT MAN 5 % (24-44); MONOCYTES PERCENT MAN 6 % (0-8); SEG NEUTROPHILS ABSOLUTE MAN 7.39 K/uL (1.80-7.70); SEG NEUTROPHILS PERCENT MAN 88 % (41-71)
[2023-07-04 07:29] VITALS: BP 123/82; PULSE 78
== END 2023-07-04 07:15 | disposition home or self-care (01) ==
LOC: MW.ED 00:08 → MW.MS 03:52
PROVIDERS: ADMIT Obstetrics & Gynecology; ATTEND Obstetrics & Gynecology
DX: O00.90 Unspecified ectopic pregnancy without intrauterine pregnancy (principal); F41.9 Anxiety disorder, unspecified; F43.10 Post-traumatic stress disorder, unspecified; F31.9 Bipolar disorder, unspecified; Z91.040 Latex allergy status; Z88.1 Allergy status to other antibiotic agents; Z88.8 Allergy status to other drugs, medicaments and biological substances; Z98.890 Other specified postprocedural states
CPT/HCPCS: 36415; 59151; 76817; 80053; 81001; 84702; 85007; 85025; 85027; 86900; 86901; 87086; 96361; 96374; 96375; 96376; 99285; A9270; J0131; J1100; J1170; J1885; J2270; J2405; J2704; J2795; J3490; J7030; G0378; J0665; J2765

== ENCOUNTER 2023-10-10 16:02 | Emergency (ER) | payer MEDICAID, OTHER ==
[2023-10-10 19:08] VITALS: BP 137/83; PULSE 78
== END 2023-10-10 19:08 | disposition home or self-care (01) ==
LOC: MW.ED 16:02
DX: S09.90XA Unspecified injury of head, initial encounter (principal); Z88.1 Allergy status to other antibiotic agents; Z88.8 Allergy status to other drugs, medicaments and biological substances; Z91.040 Latex allergy status; Y04.8XXA Assault by other bodily force, initial encounter; Z75.8 Other problems related to medical facilities and other health care
CPT/HCPCS: 70450; 70450-26; 72125; 72125-26; 99283; 99284